=== PATIENT | female | born 1950 | race Caucasian/White ===

== ENCOUNTER 2024-05-08 07:51 | Day surgery (SDC) | payer OTHER ==
[2024-05-02 14:05] VITALS: BMI 35.0
[2024-05-08 09:44] VITALS: TEMP 97.1
[2024-05-08 09:45] VITALS: BP 110/50; PULSE 65; RESP 19
== END 2024-05-08 09:54 | disposition home or self-care (01) ==
LOC: FASU-ENDO 07:51
PROVIDERS: ATTEND Internal Medicine Gastroenterology
PROC: 0DJD8ZZ Inspection of Lower Intestinal Tract, Via Natural or Artificial Opening Endoscopic (ICD-10-PCS; principal; 2024-05-08 09:00)
DX: Z12.11 Encounter for screening for malignant neoplasm of colon (principal)